=== PATIENT | male | born 1970 | race Hispanic/Latino ===

== ENCOUNTER 2022-06-20 21:46 | Emergency (ER) | payer OTHER, SELFPAY ==
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
[2022-06-20 21:57] VITALS: BP 108/71; PULSE 70; RESP 18; TEMP 36.1; O2SAT 99
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
[2022-06-20 22:58] VITALS: BP 109/74; PULSE 81; RESP 16; O2SAT 100
[2022-06-20 22:59] VITALS: O2SAT 99
[2022-06-20 23:00] VITALS: O2SAT 99
== END 2022-06-20 23:34 | disposition short-term general hospital (02) ==
PROVIDERS: Emergency Provider Physician Assistant
DX: S06.6X0A Traumatic subarachnoid hemorrhage without loss of consciousness, initial encounter (principal); S01.01XA Laceration without foreign body of scalp, initial encounter; V64.6XXA Passenger in heavy transport vehicle injured in collision with heavy transport vehicle or bus in traffic accident, initial encounter
CPT/HCPCS: 12001; 70450; 72125; 99285